=== PATIENT | female | born 1980 | race Caucasian/White ===

== ENCOUNTER 2020-04-17 15:55 | Observation (INO) | payer OTHER ==
[~2020-04-17] VITALS: Ht 167.6 cm; Wt 130.6 kg
[2020-04-17] MEDS ORDERED: [UNRECOGNIZED DRUG - CODE] PO (17:13)
== END 2020-04-17 17:20 | disposition home or self-care (01) ==
LOC: 8 EST LDRP 15:55
PROVIDERS: ADMIT Obstetrics & Gynecology; ATTEND Obstetrics & Gynecology
DX: O62.9 Abnormality of forces of labor, unspecified (principal); O26.893 Other specified pregnancy related conditions, third trimester; R03.0 Elevated blood-pressure reading, without diagnosis of hypertension; Z3A.37 37 weeks gestation of pregnancy
CPT/HCPCS: 99281; G0378

== ENCOUNTER 2020-04-18 13:12 | Observation (INO) | payer OTHER ==
[~2020-04-18] VITALS: Ht 167.6 cm; Wt 130.6 kg
[~2020-04-18 13:12] MED LIST: [UNRECOGNIZED DRUG - CODE] PO
== END 2020-04-18 14:45 | disposition home or self-care (01) ==
LOC: 8 EST LDRP 13:12
PROVIDERS: ADMIT Obstetrics & Gynecology; ATTEND Obstetrics & Gynecology
DX: O26.853 Spotting complicating pregnancy, third trimester (principal); Z3A.37 37 weeks gestation of pregnancy
CPT/HCPCS: 99281; G0378

== ENCOUNTER 2020-04-19 11:42 | Inpatient (IN) | payer OTHER ==
[~2020-04-19] VITALS: Ht 167.6 cm; Wt 130.6 kg
[2020-04-19] MEDS ORDERED: LACTATED RINGERS 1,000 ML IV SCH (12:26)
[2020-04-19] MEDS ORDERED: DEXT 5%/LR + PITOCIN 20UNITS/L 1,000 ML IV SCH (12:30)
[2020-04-19 12:49] LABS: BASOPHILS % 0.4 % (0.0-2.0); EOSINOPHILS % 0.4 % (0.0-5.0); HEMATOCRIT. 33.2 % (36.0-48.0); HEMOGLOBIN. 11.5 g/dL (12.0-16.0); LYMPHOCYTES % 14.3 % (20.0-50.0); MEAN CORPUSCULAR HEMOGLOBIN 29.8 pg (28.0-32.0); MEAN CORPUSCULAR VOLUME 86.3 fL (81.0-99.0); MEAN PLATELET VOLUME 10.2 fl (7.4-10.4); MONOCYTES % 4.9 % (2.0-8.0); PLATELET 179 x1000/uL (130-400); RED BLOOD CELL COUNT 3.85 mill/uL (4.2-5.4); RED CELL DISTRIBUTION WIDTH 14.5 % (11.6-14.6)
[2020-04-19] MEDS ORDERED: BENZOCAINE/LANOLIN/ALOE VERA SPRAY TOP PRN (13:00)
[2020-04-19] MEDS ORDERED: DIPHENHYDRAMINE 25MG CAPSULE PO PRN (13:00)
[2020-04-19] MEDS ORDERED: IBUPROFEN 400MG TABLET PO PRN (13:00)
[2020-04-19] MEDS ORDERED: OXYCODONE HCL/ACETAMINOPHEN 5/325MG TABLET PO PRN (13:00)
[2020-04-19] MEDS ORDERED: LANOLIN OINT 7GM TUBE TOP PRN (13:00)
[2020-04-19] MEDS ORDERED: ACETAMINOPHEN WITH CODEINE 300/30MG TABLET PO PRN (13:00)
[2020-04-19] MEDS ORDERED: GLYCERIN/WITCH HAZEL LEAF MEDICATED PAD TOP PRN (13:00)
[2020-04-19 13:24] LABS: INR 0.9; PARTIAL THROMBOPLASTIN TIME 28.2 sec (23.4-31.0); PROTHROMBIN TIME 9.7 sec (9.6-11.0)
[2020-04-19 13:38] LABS: HEPATITIS B SURFACE ANTIGEN NEGATIVE
[2020-04-19 14:45] VITALS: BP 119/68
[2020-04-19 15:40] VITALS: BP 105/58
[2020-04-19] MEDS ORDERED: DEXTROSE 50% WATER 50ML SYRINGE IV PRN (16:30)
[2020-04-19] MEDS ORDERED: BLOOD SUGAR DIAGNOSTIC STRIP TEST SCH (17:00)
[2020-04-19 17:06] LABS: CLARITY URINE CLOUDY (CLEAR); COLOR URINE RED (YELLOW); KETONES URINE NEGATIVE (NEGATIVE); LEUKOCYTE ESTERASE URINE 1+ (NEGATIVE); NITRITE URINE NEGATIVE (NEGATIVE); OCCULT BLOOD URINE 3+ (NEGATIVE); PROTEIN URINE 1+ (NEGATIVE); UROBILINOGEN URINE 0.2 E.U./dL (0.2-1.0)
[2020-04-19] MEDS ORDERED: INSULIN LISPRO 100 UNITS/ML SUBCUT SCH (17:30)
[2020-04-19 20:15] VITALS: BP 115/63
[2020-04-19] MEDS ORDERED: DOCUSATE SODIUM 100MG CAPSULE PO SCH (21:00)
[2020-04-20 05:00] VITALS: BP 125/84
[2020-04-20 06:43] LABS: BASOPHILS % 0.5 % (0.0-2.0); EOSINOPHILS % 1.9 % (0.0-5.0); HEMATOCRIT. 30.4 % (36.0-48.0); HEMOGLOBIN. 10.4 g/dL (12.0-16.0); LYMPHOCYTES % 23.6 % (20.0-50.0); MEAN CORPUSCULAR HEMOGLOBIN 29.5 pg (28.0-32.0); MEAN CORPUSCULAR VOLUME 86.7 fL (81.0-99.0); MEAN PLATELET VOLUME 10.9 fl (7.4-10.4); MONOCYTES % 5.9 % (2.0-8.0); NEUTROPHILS % 68.1 % (40.0-76.0); PLATELET 152 x1000/uL (130-400); RED BLOOD CELL COUNT 3.51 mill/uL (4.2-5.4); RED CELL DISTRIBUTION WIDTH 14.4 % (11.6-14.6)
[2020-04-20] MEDS ORDERED: FERROUS SULFATE 325MG TABLET PO SCH (07:30)
[2020-04-20 08:30] VITALS: BP 94/58
[2020-04-20 09:36] LABS: *AMPHETAMINES SCREEN URINE NEGATIVE (NEGATIVE); *BARBITURATES SCREEN URINE NEGATIVE (NEGATIVE)
[2020-04-20 09:37] LABS: *BENZODIAZEPINES SCREEN URINE NEGATIVE (NEGATIVE); *COCAINE SCREEN URINE NEGATIVE (NEGATIVE); CANNABINOID URINE SCREEN NEGATIVE (NEGATIVE); METHADONE URINE SCREEN NEGATIVE (NEGATIVE); OPIATES URINE SCREEN NEGATIVE (NEGATIVE); PHENCYCLIDINE URINE SCREEN NEGATIVE (NEGATIVE)
== END 2020-04-20 16:50 | disposition home or self-care (01) | DRG 560 ==
LOC: 8 EST LDRP 11:42 → INTOOBSV 11:42 → 8EST 11:42 → UNDOADMOB 11:42 → OBSVTOIN 11:42 → 8 EST LDRP 12:05 → 8EST 14:30 → 8 EST LDRP 14:30 → UNDODISIN 04-20 16:50
PROVIDERS: ADMIT Obstetrics & Gynecology; ATTEND Obstetrics & Gynecology
PROC: 10E0XZZ Delivery of Products of Conception, External Approach (ICD-10-PCS; principal; 2020-04-19)
DX: O76 Abnormality in fetal heart rate and rhythm complicating labor and delivery (principal); O24.420 Gestational diabetes mellitus in childbirth, diet controlled; O77.0 Labor and delivery complicated by meconium in amniotic fluid; Z3A.37 37 weeks gestation of pregnancy; Z37.0 Single live birth; Z83.3 Family history of diabetes mellitus
CPT/HCPCS: 36415; 80305; 81003; 82947; 82950; 82962; 83036; 85025; 86592; 86703; 86762; 86850; 86900; 87340; 99281; G0378; J1815; J2590; J7120